=== PATIENT | female | born 1945 ===

== ENCOUNTER 2020-09-29 08:50 | Outpatient (CLI) | payer MEDICARE ==
[~2020-09-29] VITALS: Ht 152.4 cm; Wt 43.0 kg
[~2020-09-29 08:50] MED LIST: LIDOCAINE 1%/EPI 1:100,000 20 ML VIAL. ONE
[2020-09-29] MEDS ORDERED: HYDR-2763 PO (09:16)
[2020-09-29] MEDS ORDERED: AMLO-186 PO (09:16)
[2020-09-29] MEDS ORDERED: WARF3TAB50 PO (09:16)
[2020-09-29] MEDS ORDERED: AMIO200T6 PO (09:16)
[2020-09-29] MEDS ORDERED: CALC667T4 PO (09:16)
[2020-09-29] MEDS ORDERED: CRESTOR5 MG PO (09:16)
[2020-09-29] MEDS ORDERED: VIT1TABL71 PO (09:16)
[2020-09-29] MEDS ORDERED: METO50TA6 PO (09:16)
[2020-09-29] MEDS ORDERED: ZINC50TA39 PO (09:16)
[2020-09-29] MEDS ORDERED: CALC200T3 PO (09:16)
[2020-09-29] MEDS ORDERED: FURO80TA72 PO (09:16)
[2020-09-29] MEDS ORDERED: GABA300C18 PO (09:16)
[2020-09-29 09:30] LABS: BASO # 0.1 x10^3/uL (0.0-0.2); BASO % 1 % (0-3); EOS # 0.3 x10^3/uL (0.0-0.7); EOS % 4 % (0-3); HEMATOCRIT 43.2 % (36.0-47.0); HEMOGLOBIN 14.2 g/dL (12.0-15.5); LYMPH # 0.8 x10^3/uL (1.0-4.8); LYMPH % 10 % (24-48); MEAN CORPUSCULAR HEMOGLOBIN 37 pg (25-35); MEAN CORPUSCULAR HGB CONC 33 g/dL (31-37); MEAN CORPUSCULAR VOLUME 112 fL (79-100); MONO # 0.7 x10^3/uL (0.0-1.1); MONO % 9 % (0-9); NEUT # 5.5 x10^3/uL (1.8-7.7); NEUT % 76 % (31-73); PLATELET COUNT 135 x10^3/uL (140-400); RED BLOOD COUNT 3.87 x10^6/uL (3.50-5.40); RED CELL DISTRIBUTION WIDTH 14.5 % (11.5-14.5); WHITE BLOOD COUNT 7.3 x10^3/uL (4.0-11.0)
[2020-09-29 09:38] VITALS: BP 157/67
[2020-09-29 09:42] LABS: PROTHROMBIN TIME PATIENT 15.5 SEC (11.7-14.0)
[2020-09-29 09:44] LABS: CALCIUM 9.2 mg/dL (8.5-10.1); CREATININE 3.6 mg/dL (0.6-1.0); GFR 12.3; POTASSIUM 4.4 mmol/L (3.5-5.1)
[2020-09-29 10:09] LABS: PLT ESTIMATE DECREASED (ADEQUATE)
[2020-09-29] MEDS ORDERED: LIDOCAINE 1%/EPI 1:100,000 20 ML VIAL. INJ ONE (10:45)
[2020-09-29 11:05] VITALS: BP 151/60
[2020-09-29 11:20] VITALS: BP 151/69
[2020-09-29 11:35] VITALS: BP 138/76
[2020-09-29 11:50] VITALS: BP 124/63
--- NOTE | 2020-09-29 12:00 | NUR ---
Discharge Note: PATRICIA HERRERA Discharge instructions and discharge home medications reviewed with Patient and a copy given. All questions have been answered and understanding verbalized. The following instructions and handouts were given: incision site care Dressing to R chest dry and intact Discontinued lines and drains: Dialysis Cath Tunneled intact. Patient discharged to Home or Self Care with Self via Ambulated JS RN Addendum: 09/29/20 at 1204 by REUBEN VELAZQUEZ RN Amended: Links added.
--- NOTE | 2020-09-29 15:11 | RAD ---
Procedure: Removal of right internal jugular tunnel central line, with fluoroscopic guidance Total fluoroscopy time: 0.1 Min Dose area product 0.1 mGycm2 Sterility: All elements of maximal sterile barrier technique including the use of a cap, mask, steril e gown, sterile gloves, large sterile sheet, appropriate hand hygiene, and 2% chlorhexidine for cutan eous antisepsis (or acceptable alternative antiseptic per current guidelines) were followed for this procedure. Consent: The procedure was explained in its entirety to the patient or the patients designated repres entative by a member of the treatment team, including a discussion of the risks, benefits and commonl y accepted alternatives to the procedure, as well as the expected consequences of no therapy whatsoev er. Discussion of the risks included, but was not limited to, those that are most frequent and thos e that are rare but possibly severe or life-threatening, as well as the possibility of unforeseen com plications. Technique and Findings: 1% lidocaine was administered overlying the pre-existing tunneled dialysis ca theter. Blunt dissection was used to free the subcutaneous cuff. The catheter was removed intact, whi ch was confirmed under fluoroscopy. Manual pressure was held. Sterile dressings were applied. No imme diate complications were identified. IMPRESSION: Removal of right internal jugular tunneled central line Electronically signed by: Rinku Mullen MD (09/29/2020 3:08 PM) [id number]
== END 2020-09-29 12:00 | disposition home or self-care (01) ==
LOC: INTRAD 08:50
PROVIDERS: ATTEND Internal Medicine Nephrology
DX: Z45.2 Encounter for adjustment and management of vascular access device (principal); N18.6 End stage renal disease; F17.210 Nicotine dependence, cigarettes, uncomplicated; Z79.01 Long term (current) use of anticoagulants; Z79.899 Other long term (current) drug therapy; Z88.0 Allergy status to penicillin; Z88.1 Allergy status to other antibiotic agents; Z88.5 Allergy status to narcotic agent
CPT/HCPCS: 36415; 36589; 77001; 80048; 85025; 85610; J3490

== ENCOUNTER 2021-01-27 08:24 | Emergency (ER) | payer MEDICARE ==
[~2021-01-27] VITALS: Ht 152.4 cm; Wt 50.4 kg
[~2021-01-27 08:24] MED LIST changes: +AMIO200T53 PO; +AMLO-186 PO; +CALC200T3 PO; +CALC667T4 PO; +CRESTOR5 MG PO; +FURO80TA72 PO; +GABA300C18 PO; +HYDR-2763 PO; -LIDOCAINE 1%/EPI 1:100,000 20 ML VIAL. ONE; +METO50TA6 PO; +VIT1TABL71 PO; +WARF3TAB50 PO; +ZINC50TA39 PO
[2021-01-27 09:16] LABS: BASO % 0 % (0-3); EOS # 0.7 x10^3/uL (0.0-0.7); EOS % 8 % (0-3); HEMATOCRIT 33.5 % (36.0-47.0); HEMOGLOBIN 11.2 g/dL (12.0-15.5); LYMPH # 1.4 x10^3/uL (1.0-4.8); LYMPH % 16 % (24-48); MEAN CORPUSCULAR HEMOGLOBIN 37 pg (25-35); MEAN CORPUSCULAR HGB CONC 34 g/dL (31-37); MEAN CORPUSCULAR VOLUME 109 fL (79-100); MONO # 0.7 x10^3/uL (0.0-1.1); MONO % 8 % (0-9); NEUT # 5.8 x10^3/uL (1.8-7.7); NEUT % 68 % (31-73); PLATELET COUNT 220 x10^3/uL (140-400); RED BLOOD COUNT 3.07 x10^6/uL (3.50-5.40); WHITE BLOOD COUNT 8.6 x10^3/uL (4.0-11.0)
[2021-01-27 10:01] LABS: PROTHROMBIN TIME PATIENT 13.3 SEC (11.7-14.0)
[2021-01-27 10:17] LABS: CALCIUM 8.2 mg/dL (8.5-10.1); CREATININE 2.5 mg/dL (0.6-1.0); GFR 18.7; POTASSIUM 3.8 mmol/L (3.5-5.1)
[2021-01-27 10:38] VITALS: BP 136/63
--- NOTE | 2021-01-27 10:43 | PHYS DOC ---
Past Medical History Additional Past Medical Histor: DIALYSIS //FRI Past Surgical History: Other Additional Past Surgical Histo: PAC REMOVAL,SHUNT L UPPER ARM Smoking Status: Current Every Day Smoker Alcohol Use: Rarely General Adult EDM: Chief Complaint: DIALYSIS PROBLEM HPI: HPI: Patient is a 75 year old female with history of ESRD on HD (,,) who presents from her dialysis center with bleeding from her dialysis fistula. The needle came out and she was bleeding for a while before someone noticed. Estimated blood loss of 500 cc. The bleeding stopped with direct pressure, and an arm clamp was placed by EMS during transfer. The arm clamp was in place on the dialysis fistula for less than 30 minutes. She denies any symptoms since the bleeding onset such as shortness of breath, lightheadedness, or chest pain. She finished two thirds of her dialysis run time. She is on warfarin with dosing alternating between 3 and 4 mg daily. Denies any other complaints. Review of Systems: Review of Systems: Constitutional: Denies fever or chills. [] Eyes: Denies change in visual acuity. [] HENT: Denies nasal congestion or sore throat. [] Respiratory: Denies cough or shortness of breath. [] Cardiovascular: Denies chest pain or edema. Reports bleeding from her left upper extremity dialysis fistula. [] GI: Denies abdominal pain, nausea, vomiting, bloody stools or diarrhea. [] : Denies dysuria. [] Musculoskeletal: Denies back pain or joint pain. [] Integument: Denies rash. [] Neurologic: Denies headache, focal weakness or sensory changes. [] Endocrine: Denies polyuria or polydipsia. [] Lymphatic: Denies swollen glands. [] Psychiatric: Denies depression or anxiety. [] Heart Score: C/O Chest Pain: No Allergies: Allergies: Allergies Coded Allergies Type Severity Reaction Last Updated Verified Penicillins Allergy Intermediate Rash 09/29/20 Yes azithromycin Allergy Intermediate Nausea and Vomiting 09/29/20 Yes codeine Allergy Intermediate Nausea and Vomiting 09/29/20 Yes Physical Exam: PE: Constitutional: Well developed, well nourished, no acute distress, non-toxic appearance. [] Neck: Normal range of motion, no tenderness, supple, no stridor. [] Cardiovascular:Heart rate regular rhythm, no murmur [] Lungs & Thorax: Bilateral breath sounds clear to auscultation [] Abdomen: Bowel sounds normal, soft, no tenderness, no masses, no pulsatile masses. [] Skin: Warm, dry, no erythema, no rash. [] Back: No tenderness, no CVA tenderness. [] Extremities: Left upper extremity dialysis fistula presents with a clamp over the dialysis site. Clamp was carefully taken down, no ongoing bleeding was noted. The area was bandaged with a 4 x 4 gauze and tape. No further bleeding was noted during her ED stay. Fistula with palpable thrill. Neurologic: Alert and oriented X 3, normal motor function, normal sensory f unction, no focal deficits noted. [] Psychologic: Affect normal, judgement normal, mood normal. [] Current Patient Data: Labs: Laboratory Tests Test 01/27/21 08:56 01/27/21 09:45 White Blood Count 8.6 x10^3/uL (4.0-11.0) Red Blood Count 3.07 x10^6/uL (3.50-5.40) L Hemoglobin 11.2 g/dL (12.0-15.5) L Hematocrit 33.5 % (36.0-47.0) L Mean Corpuscular Volume 109 fL (79-100) H Mean Corpuscular Hemoglobin 37 pg (25-35) H Mean Corpuscular Hemoglobin Concent 34 g/dL (31-37) Red Cell Distribution Width 13.0 % (11.5-14.5) Platelet Count 220 x10^3/uL (140-400) Neutrophils (%) (Auto) 68 % (31-73) Lymphocytes (%) (Auto) 16 % (24-48) L Monocytes (%) (Auto) 8 % (0-9) Eosinophils (%) (Auto) 8 % (0-3) H Basophils (%) (Auto) 0 % (0-3) Neutrophils # (Auto) 5.8 x10^3/uL (1.8-7.7) Lymphocytes # (Auto) 1.4 x10^3/uL (1.0-4.8) Monocytes # (Auto) 0.7 x10^3/uL (0.0-1.1) Eosinophils # (Auto) 0.7 x10^3/uL (0.0-0.7) Basophils # (Auto) 0.0 x10^3/uL (0.0-0.2) Prothrombin Time 13.3 SEC (11.7-14.0) Prothrombin Time INR 1.0 (0.8-1.1) Sodium Level 141 mmol/L (136-145) Potassium Level 3.8 mmol/L (3.5-5.1) Chloride Level 101 mmol/L (98-107) Carbon Dioxide Level 30 mmol/L (21-32) Anion Gap 10 (6-14) Blood Urea Nitrogen 19 mg/dL (7-20) Creatinine 2.5 mg/dL (0.6-1.0) H Estimated GFR (Cockcroft-Gault) 18.7 Glucose Level 95 mg/dL (70-99) Calcium Level 8.2 mg/dL (8.5-10.1) L Laboratory Tests 01/27/21 08:56 Laboratory Tests 01/27/21 09:45 Vital Signs: Vital Signs Date Time Temp Pulse Resp B/P (MAP) Pulse Ox O2 Delivery O2 Flow Rate FiO2 01/27/21 08:24 98.0 66 18 131/60 (83) 98 Room Air 98.0 EKG: EKG: [] Radiology/Procedures: Radiology/Procedures: [] Course & Med Decision Making: Course & Med Decision Making Pertinent Labs and Imaging studies reviewed. (See chart for details) Patient is 75-year-old female with ESRD on HD who presents from her dialysis center after bleeding from her dialysis site when the needle became detached. Approximately 500 cc were estimated to have been lost. Bleeding stopped with brief direct pressure. She is anticoagulated on Coumadin, INR was 1.0 today. I instructed her to take her 4 mg dose 2 days in a row and call her regular doctor on Friday to discuss her Coumadin dosing. Hemoglobin is 11.2. Vital signs remained stable and she remained asymptomatic throughout her ED stay. There is no further bleeding noted. Do not feel that repeat CBC is indicated, given unlikely that she would drop b elow transfusion threshold. With bleeding now stopped, I do not feel that any further management is indicated. [id number] Rachell Disclaimer: Rachell Disclaimer: This electronic medical record was generated, in whole or in part, using a voice recognition dictation system. Departure Departure Impression: Primary Impression: Hemorrhage of arteriovenous fistula Disposition: HOME / SELF CARE / HOMELESS Condition: STABLE Referrals: NO PCP (PCP) Additional Instructions: Please call your primary care doctor to discuss your low INR of 1.0. Take your 4 mg warfarin dosing today and tomorrow. Otherwise, your labs look good today. Return to the emergency department if you have recurrent bleeding, lightheadedness, shortness of breath, or chest pain. TEQUILA GILL MD Jan 27, 2021 10:43
== END 2021-01-27 11:41 | disposition home or self-care (01) ==
LOC: ER 08:24
DX: I60.8 Other nontraumatic subarachnoid hemorrhage (principal); N18.6 End stage renal disease; Z99.2 Dependence on renal dialysis; F17.200 Nicotine dependence, unspecified, uncomplicated; Z88.0 Allergy status to penicillin; Z88.1 Allergy status to other antibiotic agents; Z88.5 Allergy status to narcotic agent; Z79.01 Long term (current) use of anticoagulants
CPT/HCPCS: 36415; 80048; 85025; 85610; 86850; 86900; 86901; 99283